=== PATIENT | female | born 1950 | race Caucasian/White ===

== ENCOUNTER → 2017-12-15 | Outpatient (CLI) | payer MEDICARE, OTHER ==
[~2017-12-15] MED LIST: HYDROCODONE-AP1 EAC6 PO; NOHOMEMEDICATIONS
== END ==
LOC: M.MRI 06:53
DX: S83.241A Other tear of medial meniscus, current injury, right knee, initial encounter (principal); S83.411A Sprain of medial collateral ligament of right knee, initial encounter; M67.461 Ganglion, right knee; M71.30 Other bursal cyst, unspecified site; X58.XXXA Exposure to other specified factors, initial encounter; Y93.89 Activity, other specified; Y92.89 Other specified places as the place of occurrence of the external cause; Y99.8 Other external cause status

== ENCOUNTER → 2018-02-02 | Outpatient (CLI) | payer MEDICARE, OTHER | LOC: M.ULTRA 15:42 | DX: R09.89 Other specified symptoms and signs involving the circulatory and respiratory systems (principal); Z82.49 Family history of ischemic heart disease and other diseases of the circulatory system ==

== ENCOUNTER → 2018-03-16 | Outpatient (CLI) | payer MEDICARE, OTHER ==
--- NOTE | 2018-03-16 14:54 | EXE ---
[place] [address] STRESS ECHOCARDIOGRAM Name: STEPAN COVARRUBIAS Room: [facility]#: [id number] Admission: 03/16/18 Attend Phys: Lacho David MD Discharge: Date of : 54 Date of Service: 03/16/18 1453 Report #: [id number] THIS REPORT FOR: //name// APPROVED REPORT Study performed: 03/16/2018 13:35:00 Exam: Dobutamine Stress Echo Indication: Dyspnea , abnormal EKG Patient Location: Out-Patient Stress Nurse: Caty Woodson RN Supervising Physician: Lacho David MD Status: routine Ht: 5 ft 5 in HR: 68 bpm BP: 147/85 mmHg Medical History Cardiac Risk Factors: Hyperlipidemia, HTN,, FHX of CAD Procedure The patient underwent a Pharmacological Stress Test using Dobutamine. Blood pressure, heart rate, and EKG were monitored. An Echocardiogram was performed by medical lab technician in four stages in quad fashion. At peak stress, four selected images were obtained and placed side by side with resting images for comparison. Stress Test Details Stress Test: Pharmacological Stress Test using Dobutamine. HR Resting HR: 68 bpm Max Heart Rate (APMHR): 155 bpm Max HR Achieved: 136 bpm Target HR (85% APMHR): 131 bpm % of APMHR: 87 Recovery HR: 85 bpm HR response to stress: Normal HR response to stress BP Resting BP: 147/85 mmHg Max BP: 190/46 mmHg Recovery BP: 157/91 mmHg ECG Resting ECG: Sinus Rhythm Stress ECG: Sinus Rhythm, nonspecific [place] [address] STRESS ECHOCARDIOGRAM Name: STEPAN COVARRUBIAS Rehan Room: [facility]#: [id number] Admission: 03/16/18 Attend Phys: Lacho David MD Discharge: Date of : 54 Date of Service: 03/16/18 1453 Report #: [id number] ST Change: Horizontal ST depression Maximum ST Deviation: 1 mm Arrhythmia: None Recovery ECG: Sinus Rhythm, nonspecific ST-T abnormalities Recovery ST Change: Upsloping ST depression Recovery ST Deviation: 0.5 mm Recovery Arrhythmia: None Clinical Reason for Termination: Completed protocol Pre-Stress Echo The resting Echocardiogram showed normal left ventricular contractility with an estimated Ejection Fraction of about 55-60%. Post-Stress Echo The stress Echocardiogram showed normal left ventricular contractility with an estimated Ejection Fraction of about >70%. Conclusion Clinical Response: Non-ischemic Stress ECG Response: Ischemic Stress Echo Images: Non-ischemic low risk stress echo for future cardiac events Other Information Study Quality: Excellent <Conclusion> low risk stress echo for future cardiac events <ELECTRONICALLY SIGNED> By: Lacho David MD, [facility] 03/16/18 1453 [id number] Lacho David MD, [facility] /INF
== END ==
LOC: M.CRD 13:00
DX: R06.00 Dyspnea, unspecified (principal); R94.31 Abnormal electrocardiogram [ECG] [EKG]; R06.02 Shortness of breath